=== PATIENT | male | born 1945 | race Caucasian/White ===

== ENCOUNTER 2021-10-29 09:00 | Inpatient (IN) | payer MEDICARE ==
[~2021-10-29] VITALS: Ht 185.4 cm; Wt 108.9 kg
[2021-10-29 10:21] LABS: BASOPHILS % (AUTO) 0.9 % (0.0-5.0); EOSINOPHILS % (AUTO) 5.2 % (0.0-8.0); HEMATOCRIT 48.1 % (42-54); LYMPHOCYTES % (AUTO) 27.4 % (21.0-51.0); MEAN CORPUSCULAR HEMOGLOBIN 29.9 pg (27.0-33.0); MEAN CORPUSCULAR HGB CONC 32.8 g/dL (32.0-36.0); MEAN CORPUSCULAR VOLUME 91.1 fL (79-99); MONOCYTES % (AUTO) 6.9 % (3.0-13.0); NEUTROPHILS % (AUTO) 59.2 % (40.0-77.0); PLATELET COUNT (AUTO) 219 K/uL (130-400); RED BLOOD CELL COUNT(AUTO) 5.28 MIL/uL (4.50-6.20); RED CELL DISTRIBUTION WIDTH 12.7 % (11.0-15.5); WHITE BLOOD COUNT (AUTO) 7.4 K/uL (4.8-10.8)
[2021-10-29 10:23] LABS: APPEARANCE,URINE Clear (CLEAR); BILIRUBIN,URINE Negative (NEGATIVE); COLOR,URINE Yellow (YELLOW); GLUCOSE, URINE (UA) Negative (NEGATIVE); KETONES,URINE Negative (NEGATIVE); LEUKOCYTE ESTERASE ,URINE Negative (NEGATIVE); NITRATE,URINE Negative (NEGATIVE); OCCULT BLOOD,URINE Negative (NEGATIVE); PH,URINE 5.5 (5.0-8.0); PROTEIN,URINE Negative (NEGATIVE)
[2021-10-29] MEDS ORDERED: OMEP-420 PO (10:28)
[2021-10-29] MEDS ORDERED: MULT-1259 PO (10:28)
[2021-10-29] MEDS ORDERED: GLUC-29 PO (10:28)
[2021-10-29] MEDS ORDERED: PRAV20TA4 PO (10:28)
[2021-10-29] MEDS ORDERED: LISI10TA24 PO (10:28)
[2021-10-29] MEDS ORDERED: OMEG-148 PO (10:28)
[2021-10-29] MEDS ORDERED: ASCO100031 PO (10:28)
[2021-10-29 10:32] LABS: POTASSIUM 4.8 mmol/L (3.5-5.1)
[2021-10-29 10:34] LABS: PROTHROMBIN TIME 10.9 SEC (9.6-11.6)
[2021-11-01] VITALS (18 sets, daily range): BP systolic 88–131; BP diastolic 33–83
[2021-11-01] MEDS: CEFAZOLIN SODIUM 1 GM VIAL IVP ONE ×2 (12:00→17:00)
[2021-11-01] MEDS ORDERED: CEFAZOLIN SODIUM 1 GM VIAL ONE ×2 (12:02→16:45)
[2021-11-01] MEDS ORDERED: LACTATED RINGERS 1000ML 1,000 ML IV ONE (12:02)
[2021-11-01] MEDS ORDERED: ROCURONIUM 10MG/1ML SYR 10 MG/ML ML ONE (16:30)
[2021-11-01] MEDS ORDERED: PROPOFOL 10 MG/ML 20ML VIAL IV ONE (16:30)
[2021-11-01] MEDS ORDERED: MIDAZOLAM HCL 1 MG/ML 2ML VIAL ONE (16:30)
[2021-11-01] MEDS ORDERED: SUCCINYLCHOLINE CHLORIDE 20 MG/ML 10 ML VIAL ONE (16:30)
[2021-11-01] MEDS ORDERED: LIDOCAINE PF 100MG/5ML (2%) SYRINGE 5ML ONE (16:30)
[2021-11-01] MEDS ORDERED: ROPIVACAINE 0.5% 5MG/ML 30ML IJ ONE (16:32)
[2021-11-01] MEDS ORDERED: TRANEXAMIC ACID 1000MG/10ML ONE ×2 (16:45→20:32)
[2021-11-01] MEDS ORDERED: EPHEDRINE SULFATE 50 MG/ML AMPULE ONE (16:56)
[2021-11-01] MEDS ORDERED: VASOPRESSIN 20 UNITS/ML 1ML VIAL ONE (17:01)
[2021-11-01] MEDS ORDERED: PHENYLEPHRINE HCL 10 MG/ML 1ML VIAL IV ONE (18:27)
[2021-11-01] MEDS ORDERED: NEOSTIGMINE 5MG/5ML SYR IV ONE (20:03)
[2021-11-01] MEDS ORDERED: ONDANSETRON 4MG INJ ONE (20:03)
[2021-11-01] MEDS ORDERED: GLYCOPYRROLATE 1 MG/5 ML SYRINGE ONE (20:03)
[2021-11-01] MEDS ORDERED: LIDOCAINE HCL-MPF 1% 2ML VIAL IV PRN (20:30)
[2021-11-01] MEDS ORDERED: ONDANSETRON 4MG INJ IVP PRN (20:30)
[2021-11-01] MEDS ORDERED: FE FUMARATE/FA/MV, MIN COMB#15 1 TAB PO PRN (20:30)
[2021-11-01] MEDS ORDERED: POTASSIUM CHLORIDE 10% ELIXIR 20 MEQ/15 ML UDCUP PO PRN (20:30)
[2021-11-01] MEDS ORDERED: TEMAZEPAM 15 MG CAPSULE PO PRN (20:30)
[2021-11-01] MEDS ORDERED: DiphenhydrAMINE HCL 50 MG/ML VIAL IVP PRN (20:30)
[2021-11-01] MEDS ORDERED: KCL 20 MEQ ERTAB PO PRN (20:30)
[2021-11-01] MEDS ORDERED: POTASSIUM CHLORIDE 20MEQ/100ML 100 ML IV PRN (20:30)
[2021-11-01] MEDS ORDERED: KETOROLAC 15MG/ML VIAL (15MG/ML) IV PRN (20:30)
[2021-11-01] MEDS: CELECOXIB 200 MG CAP PO SCH (22:26)
[2021-11-01] MEDS: PREGABALIN 25 MG CAP PO SCH (22:26)
[2021-11-01] MEDS: 0.9%NACL 1000ML 1,000 ML IV SCH (22:27)
[2021-11-01] MEDS: ACETAMINOPHEN 500 MG TABLET PO SCH (22:27)
[2021-11-02] VITALS (9 sets, daily range): BP systolic 94–131; BP diastolic 49–78
[2021-11-02] MEDS: CEFAZOLIN SODIUM 1 GM VIAL IVP SCH ×2 (01:09→08:19)
[2021-11-02] MEDS: ACETAMINOPHEN 500 MG TABLET PO SCH ×3 (03:53→20:22)
[2021-11-02 04:16] LABS: HEMATOCRIT 38.3 % (42-54); MEAN CORPUSCULAR HEMOGLOBIN 29.8 pg (27.0-33.0); MEAN CORPUSCULAR HGB CONC 31.9 g/dL (32.0-36.0); MEAN CORPUSCULAR VOLUME 93.6 fL (79-99); RED BLOOD CELL COUNT(AUTO) 4.09 MIL/uL (4.50-6.20); RED CELL DISTRIBUTION WIDTH 12.7 % (11.0-15.5); WHITE BLOOD COUNT (AUTO) 12.4 K/uL (4.8-10.8)
[2021-11-02 04:23] LABS: CREATININE 1.4 mg/dL (0.5-1.5); POTASSIUM 4.2 mmol/L (3.5-5.1)
[2021-11-02] MEDS: 0.9%NACL 1000ML 1,000 ML IV SCH (05:36)
[2021-11-02] MEDS: OXYCODONE HCL 5 MG TAB PO PRN ×3 (06:28→23:06)
[2021-11-02] MEDS: POLYETHYLENE GLYCOL 3350 17 GM POWD.PACK PO SCH (07:52)
[2021-11-02] MEDS: PANTOPRAZOLE 40 MG TAB DR PO SCH (07:52)
[2021-11-02] MEDS: ENOXAPARIN SODIUM 40 MG/0.4 ML SYRINGE SQ SCH (07:52)
[2021-11-02] MEDS: CALCIUM CARB 500MG PO PRN ×2 (07:52→20:20)
[2021-11-02] MEDS: ATORVASTATIN 10 MG TABLET PO SCH (07:52)
[2021-11-02] MEDS: MULTIVITAMIN WITH MINERALS TABLET PO SCH (07:52)
[2021-11-02] MEDS: PREGABALIN 25 MG CAP PO SCH ×2 (07:52→20:20)
[2021-11-02] MEDS: CELECOXIB 200 MG CAP PO SCH ×2 (07:53→20:20)
[2021-11-02] MEDS: TAMSULOSIN HCL 0.4 MG CAP.ER.24H PO SCH (07:53)
[2021-11-02] MEDS: ASCORBIC ACID 500 MG TAB PO SCH (07:53)
[2021-11-02] MEDS: LISINOPRIL 10 MG TABLET PO SCH (08:19)
[2021-11-02] MEDS: TRAMADOL HCL 50 MG TABLET PO PRN ×2 (08:20→17:07)
[2021-11-03 00:08] VITALS: BP 125/53
[2021-11-03] MEDS: ACETAMINOPHEN 500 MG TABLET PO SCH ×2 (04:08→12:41)
[2021-11-03 04:57] VITALS: BP 123/65
[2021-11-03 08:10] VITALS: BP 135/85
[2021-11-03] MEDS: PREGABALIN 25 MG CAP PO SCH (08:51)
[2021-11-03] MEDS: OXYCODONE HCL 5 MG TAB PO PRN ×2 (08:52→12:42)
[2021-11-03] MEDS: PANTOPRAZOLE 40 MG TAB DR PO SCH (08:52)
[2021-11-03] MEDS: LISINOPRIL 10 MG TABLET PO SCH (08:52)
[2021-11-03] MEDS: TAMSULOSIN HCL 0.4 MG CAP.ER.24H PO SCH (08:52)
[2021-11-03] MEDS: ASCORBIC ACID 500 MG TAB PO SCH (08:52)
[2021-11-03] MEDS: CELECOXIB 200 MG CAP PO SCH (08:52)
[2021-11-03] MEDS: MULTIVITAMIN WITH MINERALS TABLET PO SCH (08:52)
[2021-11-03] MEDS: POLYETHYLENE GLYCOL 3350 17 GM POWD.PACK PO SCH (08:53)
[2021-11-03] MEDS: ATORVASTATIN 10 MG TABLET PO SCH (08:53)
[2021-11-03] MEDS: ENOXAPARIN SODIUM 40 MG/0.4 ML SYRINGE SQ SCH (08:53)
[2021-11-03] MEDS ORDERED: HYDR-4060 PO (10:52)
[2021-11-03 11:16] VITALS: BP 127/62
[2021-11-04] MEDS ORDERED: BISACODYL 10 MG SUPP.RECT RC PRN (20:30)
== END 2021-11-03 14:04 | disposition home health service (06) | DRG 483 ==
LOC: EDSTATUS 09:00 → OBSVTOIN 11-01 11:13 → INTOOBSV 11-01 11:13 → DAHIP 11-01 11:13 → 4BH 11-01 21:16
PROVIDERS: ADMIT Orthopaedic Surgery; ATTEND Orthopaedic Surgery
PROC: 0RRK0JZ Replacement of Left Shoulder Joint with Synthetic Substitute, Open Approach (ICD-10-PCS; principal; 2021-11-01 17:23)
PROC: 3E0T3BZ Introduction of Anesthetic Agent into Peripheral Nerves and Plexi, Percutaneous Approach (ICD-10-PCS; 2021-11-01 17:23)
PROC: 3E0T33Z Introduction of Anti-inflammatory into Peripheral Nerves and Plexi, Percutaneous Approach (ICD-10-PCS; 2021-11-01 17:23)
DX: M19.012 Primary osteoarthritis, left shoulder (principal); G89.29 Other chronic pain; E11.9 Type 2 diabetes mellitus without complications; I10 Essential (primary) hypertension; E78.5 Hyperlipidemia, unspecified; K21.9 Gastro-esophageal reflux disease without esophagitis; Z96.653 Presence of artificial knee joint, bilateral; Z20.822 Contact with and (suspected) exposure to COVID-19; Z88.6 Allergy status to analgesic agent; Z87.891 Personal history of nicotine dependence; Z82.49 Family history of ischemic heart disease and other diseases of the circulatory system
CPT/HCPCS: 36415; 73030; 80048; 81003; 85025; 85027; 85610; 87088; 87635; 87641; 88305; 88311; C1776; G0378; J0330; J0690; J1650; J1885; J2001; J2250; J2370; J2405; J2704; J2710; J2795; J3490; J7030; J7120

== ENCOUNTER → 2023-04-04 | Outpatient (CLI) | payer MEDICARE, OTHER ==
[~2023-04-04] MED LIST: ASCO100031 PO; GLUC-29 PO; HYDR-4060 PO; LISI10TA24 PO; MULT-1259 PO; OMEG-148 PO; OMEP-420 PO; PRAV20TA4 PO
== END | disposition home or self-care (01) ==
LOC: RAH 10:28
PROVIDERS: ATTEND Physical Medicine & Rehabilitation
DX: M48.061 Spinal stenosis, lumbar region without neurogenic claudication (principal); G62.9 Polyneuropathy, unspecified
CPT/HCPCS: 72110

== ENCOUNTER 2023-07-20 16:08 | Emergency (ER) | payer OTHER ==
[~2023-07-20] VITALS: Ht 180.3 cm; Wt 108.0 kg
[2023-07-20 16:30] VITALS: BP 164/92; PULSE 104; RESP 18; O2SAT 95
[2023-07-20 16:50] LABS: SARS-CoV-2, RNA, NAAT NEGATIVE SARS CoV-2 (NEGATIVE)
[2023-07-20 16:55] LABS: INFLUENZA TYPE A Negative For Type A (NEGATIVE); INFLUENZA TYPE B Negative For Type B (NEGATIVE)
[2023-07-20 18:21] LABS: MEAN CORPUSCULAR HEMOGLOBIN 30.3 pg (27.0-33.0); MEAN CORPUSCULAR HGB CONC 33.6 g/dL (32.0-36.0); MEAN CORPUSCULAR VOLUME 90.4 fL (79-99); PLATELET COUNT (AUTO) 146 K/uL (130-400); RED BLOOD CELL COUNT(AUTO) 4.98 MIL/uL (4.50-6.20); RED CELL DISTRIBUTION WIDTH 12.8 % (11.0-15.5); WHITE BLOOD COUNT (AUTO) 7.6 K/uL (4.8-10.8)
[2023-07-20 18:33] LABS: POTASSIUM 4.5 mmol/L (3.5-5.1)
[2023-07-20 18:38] LABS: ALBUMIN 3.8 g/dL (3.5-5.0); BILIRUBIN,TOTAL 0.8 mg/dL (0.2-1.0); TOTAL PROTEIN, SERUM 7.6 g/dL (6.0-8.3)
[2023-07-20] MEDS ORDERED: FLUT16H NASAL (18:48)
[2023-07-20] MEDS ORDERED: BENZ200C53 PO (18:48)
[2023-07-20] MEDS ORDERED: AZIT250T9 PO (18:48)
[2023-07-20 18:54] LABS: EOSINOPHILS % (MANUAL) 3 % (1-6); LYMPHOCYTES % (MANUAL) 13 % (22-44); MONOCYTES % (MANUAL) 6 % (2-9); SEGMENTED NEUTROPHILS % 78 % (40-70); TOTAL CELLS COUNTED 100
[2023-07-20 18:56] LABS: MAN.DIFF COMMENT-IMPRESSION MANUAL DIFFERENTIAL; PLATELET MORPHOLOGY COMMENT ADEQUATE; WBC MORPHOLOGY SMUDGE CELLS 1+
== END 2023-07-20 19:11 | disposition home or self-care (01) ==
LOC: EDH 16:08
DX: J06.9 Acute upper respiratory infection, unspecified (principal); R05.9 Cough, unspecified; I10 Essential (primary) hypertension; E78.00 Pure hypercholesterolemia, unspecified; K21.9 Gastro-esophageal reflux disease without esophagitis; Z79.899 Other long term (current) drug therapy; Z20.822 Contact with and (suspected) exposure to COVID-19
CPT/HCPCS: 99284; 71045; 87635; 80053; 85025; 87804 ×2; 36415; C9803

== ENCOUNTER → 2023-08-28 | Outpatient (CLI) | payer OTHER ==
[~2023-08-28] MED LIST changes: +AZIT250T9 PO; +BENZ200C53 PO; +FLUT16H NASAL
== END | disposition home or self-care (01) ==
LOC: RAH 10:00
PROVIDERS: ATTEND Physical Medicine & Rehabilitation
DX: M51.36 Other intervertebral disc degeneration, lumbar region (principal); M47.26 Other spondylosis with radiculopathy, lumbar region
CPT/HCPCS: 72148

== ENCOUNTER 2024-08-29 10:39 | Observation (INO) | payer OTHER ==
[2024-08-23 13:13] VITALS: BP 139/70; PULSE 55; RESP 16; TEMP 97.6
[2024-08-23 13:27] LABS: BASOPHILS # (AUTO) 0.07 K/uL (0.00-0.20); BASOPHILS % (AUTO) 0.9 % (0.0-5.0); EOSINOPHILS % (AUTO) 2.7 % (0.0-8.0); HEMATOCRIT 42.8 % (42-54); IMMATURE GRANULOCYTE ABSOLUTE 0.02 K/uL (0-1); LYMPHOCYTES % (AUTO) 26.2 % (21.0-51.0); MEAN CORPUSCULAR HEMOGLOBIN 30.2 pg (27.0-33.0); MEAN CORPUSCULAR HGB CONC 33.4 g/dL (32.0-36.0); MEAN CORPUSCULAR VOLUME 90.3 fL (79-99); MONOCYTES # (AUTO) 0.5 K/uL (0.1-1.0); NEUTROPHILS # (AUTO) 4.8 K/uL (1.8-7.7); NEUTROPHILS % (AUTO) 63.9 % (40.0-77.0); PLATELET COUNT (AUTO) 212 K/uL (130-400); RED BLOOD CELL COUNT(AUTO) 4.74 MIL/uL (4.50-6.20); RED CELL DISTRIBUTION WIDTH 12.6 % (11.0-15.5); WHITE BLOOD COUNT (AUTO) 7.5 K/uL (4.8-10.8)
[2024-08-23 13:44] LABS: APPEARANCE,URINE CLEAR (CLEAR); BILIRUBIN,URINE NEGATIVE (NEGATIVE); COLOR,URINE LIGHT-YELLOW (YELLOW); GLUCOSE, URINE (UA) NEGATIVE (NEGATIVE); KETONES,URINE NEGATIVE (NEGATIVE); LEUKOCYTE ESTERASE ,URINE NEGATIVE Leu/uL (NEGATIVE); NITRATE,URINE NEGATIVE (NEGATIVE); OCCULT BLOOD,URINE NEGATIVE (NEGATIVE); PH,URINE 7.5 (5.0-8.0); PROTEIN,URINE NEGATIVE (NEGATIVE); UROBILINOGEN,URINE 0.2 mg/dL (0.2-1.0)
[2024-08-23 13:48] LABS: INR 0.99 (0.85-1.15); PROTHROMBIN TIME 10.7 SEC (9.6-11.6)
[2024-08-23 13:49] LABS: PARTIAL THROMBOPLASTIN TIME 30.2 SEC (26.3-35.5)
[2024-08-23 13:51] LABS: ADD UA MICROSCOPIC NO
[2024-08-23 13:54] LABS: POTASSIUM 4.2 mmol/L (3.5-5.1)
--- NOTE | 2024-08-24 06:15 | EKG ---
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
[2024-08-29] VITALS (23 sets, daily range): BP systolic 87–126; BP diastolic 42–63; PULSE 50–61; RESP 15–20; TEMP 97.1–98.4
[~2024-08-29] VITALS: Ht 181.6 cm; Wt 112.3 kg
[~2024-08-29 10:39] MED LIST changes: -AZIT250T9 PO; -BENZ200C53 PO; -FLUT16H NASAL; -GLUC-29 PO; -HYDR-4060 PO; -LISI10TA24 PO; +OLME-12 PO; -PRAV20TA4 PO; +ROSU10TA72 PO
[2024-08-29] MEDS: ceFAZolin SODIUM 2 GM VIAL ONE (11:49)
[2024-08-29] MEDS: LACTATED RINGERS 1000ML 1,000 ML IV ONE (11:49)
[2024-08-29] MEDS ORDERED: LIDOCAINE PF 100MG/5ML (2%) SYRINGE 5ML ONE ×2 (13:59→14:29)
[2024-08-29] MEDS ORDERED: SUCCINYLCHOLINE CHLORIDE 20 MG/ML 10 ML VIAL ONE (13:59)
[2024-08-29] MEDS ORDERED: proPOFol 10 MG/ML 20ML VIAL IV ONE (14:01)
[2024-08-29] MEDS ORDERED: MIDAZOLAM HCL 1 MG/ML 2ML VIAL ONE (14:02)
[2024-08-29] MEDS ORDERED: rocuRONium bROMide 10MG/1ML 5ML VL ONE ×2 (14:02→16:02)
[2024-08-29] MEDS ORDERED: dexaMETHasone SOD PHOSPHATE 10MG/ML 1ML VIAL ONE (14:02)
[2024-08-29] MEDS ORDERED: GLYCOPYRROLATE 0.2 MG/ML 5 ML VIAL ONE ×2 (14:02→17:52)
[2024-08-29] MEDS ORDERED: NEOSTIGMINE METHYLSULFATE 1MG/ML IV ONE ×2 (14:02→17:52)
[2024-08-29] MEDS ORDERED: FENTanyl CITRate PF 50 MCG/1 ML 2ML VIAL ONE ×2 (14:04→17:55)
[2024-08-29] MEDS ORDERED: ROPivacaine 0.5% 5MG/ML 30ML ONE (14:12)
[2024-08-29] MEDS ORDERED: phenylEPHRINE HCL 10 MG/ML 1ML VIAL IV ONE (14:22)
[2024-08-29] MEDS ORDERED: ATROPINE 1MG SYG IVP ONE (14:29)
[2024-08-29] MEDS ORDERED: ePHEDrine SULFate 50 MG/ML AMPULE ONE (15:03)
[2024-08-29] MEDS: ceFAZolin SODIUM 1 GM VIAL ONE (15:10)
[2024-08-29] MEDS ORDERED: MEPERIDINE-PF 25 MG/ML SYG ONE (17:57)
[2024-08-29] MEDS ORDERED: CALCIUM CARB 500MG PO PRN (18:00)
[2024-08-29] MEDS ORDERED: OXYcodONE HCL 5 MG TAB PO PRN (18:00)
[2024-08-29] MEDS ORDERED: 0.9%NACL 1000ML 1,000 ML IV SCH (18:00)
[2024-08-29] MEDS ORDERED: ondanSETRON 4MG INJ IVP PRN (18:00)
[2024-08-29] MEDS ORDERED: PoTASSium chl 10% ELIXIR 20MEQ 20 MEQ/15 ML UDCUP PO PRN (18:00)
[2024-08-29] MEDS ORDERED: PoTASSium chloRIDE 20MEQ/100ML 100 ML IV PRN (18:00)
[2024-08-29] MEDS ORDERED: PoTASSium chloRIDE 20MEQ ER 20 MEQ ERTAB PO PRN (18:00)
[2024-08-29] MEDS ORDERED: DiphenhydrAMINE HCL 50 MG/ML VIAL IVP PRN (18:00)
[2024-08-29] MEDS ORDERED: FE FUMARATE/FA/MV, MIN COMB#15 1 TAB PO PRN (18:00)
[2024-08-29] MEDS ORDERED: TEMAZepam 15 MG CAPSULE PO PRN (18:00)
[2024-08-29] MEDS ORDERED: traMADol HCL 50 MG TABLET PO PRN (18:00)
[2024-08-29] MEDS: acetaMINOPHEN 500 MG TABLET PO SCH (18:00)
--- NOTE | 2024-08-29 18:06 | OP ---
Operative Note: DATE OF PROCEDURE: 08/29/24 SURGEON: ROWDY COOK MD DIRECTOR OF MATH: [Yenni Pastrana] ANESTHESIA: [General anesthesia] PREOPERATIVE DIAGNOSIS: [Right shoulder osteoarthritis] POSTOPERATIVE DIAGNOSIS: [Right shoulder osteoarthritis] IMPLANTS: [Biomet shoulder. Humeral stem size 15 mm. Humeral head 46 mm diameter by 24 mm height. Size five glenoid with Tantilium post] PROCEDURE: [Right shoulder primary total arthroplasty] ESTIMATED BLOOD LOSS: [500 mL] INDICATIONS: [The patient is an 79-year-old male with history of severe pain to the right shoulder secondary to osteoarthritis that is no longer responded to conservative treatment the patient is being admitted for a total shoulder arthroplasty. The patient's pain is affecting his activities of daily living. Procedure understood, risks, benefits and possible complications and the patient agreed to sign the consent form] DESCRIPTION OF PROCEDURE: [After adequate general anesthesia was achieved and regional block obtained the patient was placed in the beach chair position on the upper extremity was prepped and draped in the usual manner. After identification of the bony landmarks and incision was carried down in the anterior aspect of the shoulder following the deltopectoral line through the skin followed by dissection of the subcutaneous tissue. After identification of the cephalic vein the deltopectoral space was developed and we proceeded to dissect the 2 muscles and retract them to enter into the space identifying the clavipectoral fascia which was incised just lateral to the short head of the biceps and directed superiorly and inferiorly. With the arm in a slight abduction and with a Sorensen retractor elevating the deltoid muscle were able to identify the subscapularis tendon and the insertion of the pectoralis muscle at the humerus as well as the circumflex vessels in the inferior border of the subscapularis. The vessels were ligated with two #1 Vicryl stitches at the most lateral aspect of the subscapularis,. The 1 cm superior portion of the pectoralis tendon insertion was cut leaving a small cuff of tendon and we then proceeded to open the long head of the biceps tendon sheath pulling then the tendon and applying to #2 Ethibond sutures through it proximally and the tendon was then cut. At this point we proceeded then to peel of the subscapularis tendon of the lesser tuberosity while at the same time externally rotating the arm exposing the humeral head and proceeded with the dissection all the way to the posterior aspect of the humeral head using the Bovie cautery. A tag suture with #1 Ethibond stitch was applied to the superolateral corner of the subscapularis previous to the detachment. At this point the humeral head was presented through the wound by externally rotating the arm further and extending it. We then proceeded to make a starting hole in the top of the humeral head entering the canal and then we proceeded to ream out to the appropriate size leaving the last reamer in place and then applying the humeral head cutting guide with 30 degree retroversion and after the guide was secured with pins we proceeded to remove the intramedullary reamer and with the use of the oscillating saw we proceeded to remove the humeral head. We then proceeded to use the humeral broaches from the smallest to the chosen diameter to obtain an adequate fit leaving the last broach in place. Then retractors were applied anteriorly and posteroinferiorly to the glenoid keeping the arm externally rotated and after the glenoid was exposed we proceeded to remove the remnants of the labrum and we found the center of the glenoid with the guide and made a drill hole with a guidepin. Then we proceeded to apply the reamer and clean the glenoid and made the surface even and expose cortical cancellus bone. This was followed by application of the glenoid guide and first we proceeded to made the 2 distal holes and with a second guide we proceeded to make the central and superior hole. The trial glenoid was inserted and noted to fit adequately and this was left in place, retractors were removed we proceeded to present the occipital humerus and the chosen humeral head was inserted to the broach in the humerus and the shoulder was reduced obtaining a stable and congruent shoulder. X-rays revealed an adequate sized for the humeral stem, adequate position of the humeral head and congruency. We then dislocated the shoulder and the humeral head was removed as well as the glenoid trial and we irrigated the joint with antibiotic solution after retractors were applied to visualize the glenoid and after cement was mixed on the back table and and we dried the surface of the glenoid and the peg holes we proceeded to apply cement to the peripheral holes and the final glenoid component was inserted and held in position until the cement dried. A diluted Betadine solution was used during this time and once the cement dried the retractors were removed and we presented the proximal humerus and the humeral stem was removed the humeral canal was then irrigated with antibiotic solution with jet lavage and the final component was then inserted previous application of #2 Ethibond looped sutures in the anterior rim for future closure of the subscapularis. Once the stem was in position we proceeded then to apply the humeral head and tap it against the stem and the shoulder was reduced. X-rays taken reveal an adequate position of the components and after further irrigation of the joint with Betadine solution first and then with antibiotic irrigation with jet lavage we proceeded then to reapproximate the subscapularis tendon with the loop sutures with 2. Ethibond and then the subscapularis was repaired to the supraspinatus with #1 Ethibond stitches. A drain was placed through a separate stab incision and the deltopectoral interval was then closed with #1 Vicryl interrupted stitches followed by closure of the subcutaneous tissue with #2-0 Monocryl inverted stitches and the skin was closed with 3-0 Monocryl subcuticularly. Dermabond was applied to cover the incision and a soft dressing was then applied. A separate soft dressing was applied around the drain which was then connected to a reservoir. The drapes were then removed, the patient was placed in an arm sling and then placed in the supine position and transferred to a hospital bed and taken to recovery room for follow-up by anesthesia. There were no complications during the procedure.] ROWDY COOK MD Aug 29, 2024 18:06
[2024-08-29] MEDS: TRANEXAMIC ACID 1000MG/10ML ONE (18:28)
[2024-08-29] MEDS: doCUSate SODIUM 100 MG CAP PO SCH (20:28)
[2024-08-29] MEDS: CeleCOXib 200 MG CAP PO SCH (23:06)
[2024-08-29] MEDS: ceFAZolin SODIUM 1 GM VIAL IVP SCH (23:06)
[2024-08-30] VITALS: BP 110/51; PULSE 61; RESP 20; TEMP 97.6
[2024-08-30] MEDS: OXYcodONE HCL 5 MG TAB PO PRN (00:13)
[2024-08-30 01:00] VITALS: BP 114/51; PULSE 60; RESP 18; TEMP 97.6
[2024-08-30] MEDS: ketOROlac 15MG/ML VIAL (15MG/ML) IV PRN (02:15)
[2024-08-30 04:00] VITALS: BP 108/46; PULSE 55; RESP 18; TEMP 98
[2024-08-30 04:54] LABS: HEMATOCRIT 31.3 % (42-54); MEAN CORPUSCULAR HEMOGLOBIN 30.5 pg (27.0-33.0); MEAN CORPUSCULAR HGB CONC 33.2 g/dL (32.0-36.0); MEAN CORPUSCULAR VOLUME 91.8 fL (79-99); RED BLOOD CELL COUNT(AUTO) 3.41 MIL/uL (4.50-6.20); RED CELL DISTRIBUTION WIDTH 12.4 % (11.0-15.5)
[2024-08-30 05:06] LABS: CREATININE 1.2 mg/dL (0.5-1.3); POTASSIUM 4.4 mmol/L (3.5-5.1)
[2024-08-30 08:00] VITALS: BP 131/70; PULSE 59; RESP 19; TEMP 98.3
[2024-08-30] MEDS: polyETHYLene GLYCol 3350 17 GM POWD.PACK PO SCH (08:09)
--- NOTE | 2024-08-30 08:31 | HMCIMG ---
SHOULDER COMP 2+VWS RT REASON: ORIF, RIGHT TSA, SX TECHNIQUE: 5 surgical spot views were obtained. These document right total shoulder arthroplasty procedure. Fluoroscopy time was 43 seconds. IMPRESSION: 1. Documentation of right total shoulder arthroplasty procedure.
[2024-08-30 12:00] VITALS: BP 144/65; PULSE 63; RESP 19; TEMP 97.4
[2024-08-30] MEDS ORDERED: CELE200 PO (16:06)
[2024-08-30] MEDS ORDERED: HYDR-4060 PO (16:06)
--- NOTE | 2024-08-30 16:14 | PN ---
The patient is postop day 1., status post right shoulder arthroplasty. The vital signs have been stable. The patient was afebrile. Laboratory has been reviewed. Patient has mild to moderate pain control with pain medication. The patient is awake, alert and oriented x3, he is in no respiratory distress. The dressing is intact, the distal neurovascular exam is normal. There is [id number] edema of the shoulder. Assessment: Status post right shoulder arthroplasty. Plan: The patient will be dismissed if he is doing okay this afternoon and in the arrangements has been completed by case management. if not, we will wait until tomorrow. Vitals/Labs Vital Signs Date Time Temp Pulse Resp B/P (MAP) Pulse Ox O2 Delivery O2 Flow Rate FiO2 08/30/24 12:00 97.3 63 19 144/65 93 Room Air 08/30/24 07:41 2 28 Laboratory Tests 08/30/24 04:43 Medications Current Medications Cefazolin Sodium 2 gm STK-MED ONCE .ROUTE Last administered on 08/29/24at 14:30; Start 08/29/24 at 11:18; Stop 08/29/24 at 11:23; Status DC Lactated Ringer's 1,000 ml @ As Directed STK-MED ONCE IV Last administered on 08/29/24at 11:49; Start 08/29/24 at 11:18; Stop 08/29/24 at 11:23; Status DC Cefazolin Sodium 1 gm STK-MED ONCE .ROUTE Last administered on 08/29/24at 15:10; Start 08/29/24 at 13:38; Stop 08/29/24 at 13:38; Status DC Succinylcholine Chloride 200 mg STK-MED ONCE .ROUTE; Start 08/29/24 at 13:59; Stop 08/29/24 at 14:00; Status DC Lidocaine HCl 100 mg STK-MED ONCE .ROUTE; Start 08/29/24 at 13:59; Stop 08/29/24 at 14:00; Status DC Propofol 200 mg STK-MED ONCE IV; Start 08/29/24 at 14:01; Stop 08/29/24 at 14:02; Status DC Dexamethasone Sodium Phosphate 10 mg STK-MED ONCE .ROUTE; Start 08/29/24 at 14:02; Stop 08/29/24 at 14:02; Status DC Glycopyrrolate 1 mg STK-MED ONCE .ROUTE; Start 08/29/24 at 14:02; Stop 08/29/24 at 14:02; Status DC Midazolam HCl 2 mg STK-MED ONCE .ROUTE; Start 08/29/24 at 14:02; Stop 08/29/24 at 14:02; Status DC Neostigmine Methylsulfate 10 mg STK-MED ONCE IV; Start 08/29/24 at 14:02; Stop 08/29/24 at 14:02; Status DC Rocuronium [place] 50 mg STK-MED ONCE .ROUTE; Start 08/29/24 at 14:02; Stop 08/29/24 at 14:02; Status DC Fentanyl Citrate 100 mcg STK-MED ONCE .ROUTE; Start 08/29/24 at 14:04; Stop 08/29/24 at 14:04; Status DC Ropivacaine 150 mg STK-MED ONCE .ROUTE; Start 08/29/24 at 14:12; Stop 08/29/24 at 14:12; Status DC Phenylephrine HCl 10 mg STK-MED ONCE IV; Start 08/29/24 at 14:22; Stop 08/29/24 at 14:22; Status DC Atropine Sulfate 1 mg STK-MED ONCE IVP; Start 08/29/24 at 14:29; Stop 08/29/24 at 14:29; Status DC Lidocaine HCl 100 mg STK-MED ONCE .ROUTE; Start 08/29/24 at 14:29; Stop 08/29/24 at 14:29; Status DC Ephedrine Sulfate 50 mg STK-MED ONCE .ROUTE; Start 08/29/24 at 15:03; Stop 08/29/24 at 15:04; Status DC Rocuronium [place] 50 mg STK-MED ONCE .ROUTE; Start 08/29/24 at 16:02; Stop 08/29/24 at 16:03; Status DC Glycopyrrolate 1 mg STK-MED ONCE .ROUTE; Start 08/29/24 at 17:52; Stop 08/29/24 at 17:52; Status DC Neostigmine Methylsulfate 10 mg STK-MED ONCE IV; Start 08/29/24 at 17:52; Stop 08/29/24 at 17:52; Status DC Tranexamic Acid 1,000 mg STK-MED ONCE .ROUTE Last administered on 08/29/24at 18:28; Start 08/29/24 at 17:54; Stop 08/29/24 at 17:54; Status DC Fentanyl Citrate 100 mcg STK-MED ONCE .ROUTE; Start 08/29/24 at 17:55; Stop 08/29/24 at 17:55; Status DC Sodium Chloride 1,000 ml @ 100 mls/hr Q10H IV; Start 08/29/24 at 18:00; Stop 08/30/24 at 08:17; Status DC Polyethylene Glycol 17 gm DAILY PO Last administered on 08/30/24at 08:09; Start 08/30/24 at 09:00; Stop 09/29/24 at 08:59 Bisacodyl 10 mg DAILY PRN RC; Start 09/01/24 at 18:00; Stop 10/01/24 at 17:59 Ketorolac Tromethamine 15 mg Q6H PRN IV Last administered on 08/30/24at 08:08; Start 08/29/24 at 18:00; Stop 09/03/24 at 17:59 Multivitamins/Iron 1 tab DAILY PRN PO; Start 08/29/24 at 18:00; Stop 09/28/24 at 17:59 Temazepam 15 mg HS PRN PO; Start 08/29/24 at 18:00; Stop 09/28/24 at 17:59 Ondansetron HCl 4 mg Q6H PRN IVP; Start 08/29/24 at 18:00; Stop 09/28/24 at 17:59 Calcium Carbonate 500 mg Q12H PRN PO; Start 08/29/24 at 18:00; Stop 09/28/24 at 17:59 Diphenhydramine HCl 25 mg Q6H PRN IVP; Start 08/29/24 at 18:00; Stop 09/28/24 at 17:59 Cefazolin Sodium 2 gm Q8H IVP Last administered on 08/30/24at 06:15; Start 08/29/24 at 23:00; Stop 08/30/24 at 07:01; Status DC Docusate Sodium 100 mg BID PO Last administered on 08/30/24at 08:09; Start 08/29/24 at 21:00; Stop 09/28/24 at 20:59 Potassium Chloride 100 ml @ 100 mls/hr AD PRN IV; Start 08/29/24 at 18:00; Stop 09/28/24 at 17:59 Potassium Chloride 20 meq AD PRN PO; Start 08/29/24 at 18:00; Stop 09/28/24 at 17:59 Potassium Chloride 20 meq AD PRN PO; Start 08/29/24 at 18:00; Stop 09/28/24 at 17:59 Celecoxib 200 mg BID PO Last administered on 08/30/24at 08:08; Start 08/29/24 at 21:00; Stop 09/28/24 at 20:59 Oxycodone HCl 5 mg Q4H PRN PO; Start 08/29/24 at 18:00; Stop 09/05/24 at 17:59 Oxycodone HCl 10 mg Q4H PRN PO Last administered on 08/30/24at 13:14; Start 08/29/24 at 18:00; Stop 09/05/24 at 17:59 Tramadol HCl 50 mg Q6H PRN PO; Start 08/29/24 at 18:00; Stop 09/03/24 at 17:59 Acetaminophen 1,000 mg Q8H PO Last administered on 08/30/24at 02:15; Start 08/29/24 at 18:00; Stop 09/28/24 at 17:59 Meperidine HCl 25 mg STK-MED ONCE .ROUTE; Start 08/29/24 at 17:57; Stop 08/29/24 at 17:58; Status DC ROWDY COOK MD Aug 30, 2024 16:14
[2024-09-01] MEDS ORDERED: BisaCODYL 10 MG SUPP.RECT RC PRN (18:00)
== END 2024-08-30 17:40 | disposition home or self-care (01) ==
LOC: DAH 10:39 → DAHIP 10:40 → DAH 17:50 → 4DH 19:54
PROVIDERS: ADMIT Orthopaedic Surgery; ATTEND Orthopaedic Surgery
DX: M19.011 Primary osteoarthritis, right shoulder (principal); E03.9 Hypothyroidism, unspecified; E78.5 Hyperlipidemia, unspecified; I10 Essential (primary) hypertension; Z86.2 Personal history of diseases of the blood and blood-forming organs and certain disorders involving the immune mechanism; Z79.899 Other long term (current) drug therapy
CPT/HCPCS: 80048 ×2; 85025; 85610; 85730; 87086; 81003; 36415 ×2; 93005; 87641; 23472; 96374; 73030; 96376; 96375; 85027; 97116; 97530 ×2; G0378 ×21; A4223 ×2; C1776 ×4; A4663; J7120 ×2; J3010 ×2; J0690 ×4; J3490 ×6; J1100; J0330; J2003 ×2; J0461; J2250; J2704; J2710 ×2; J2175; J2795; J2371; A6206; A4649 ×3; A4930 ×2; C1713; A5120; A4215; A4213; A4222; A4221; A4216; J1885 ×2